=== PATIENT | male | born 2005 | race African-American/Black ===

== ENCOUNTER 2024-11-07 14:14 | Emergency (ER) | payer SELFPAY ==
[~2024-11-07] VITALS: Ht 180.3 cm; Wt 86.0 kg
[2024-11-07 14:33] VITALS: TEMP 36.9; O2SAT 100
[2024-11-07] MEDS: METHYLPREDNISOLONE SOD SUCC 125MG/2ML (ACT-O-VIAL) IM STA (16:13)
[2024-11-07] MEDS: KETOROLAC 30MG/ML VIAL IM ONE (16:13)
[2024-11-07] MEDS: HYDROCODONE/ACETAMINOPHEN 5/325MG TABLET PO STA (16:14)
[2024-11-07] MEDS: PENICILLIN G BENZATHINE 1,200,000 UNITS/2ML SYR IM ONE (16:43)
[2024-11-07] MEDS ORDERED: IBUP-2029 PO (17:09)
[2024-11-07] MEDS ORDERED: AMOX1TAB16 MT (17:09)
[2024-11-07 17:19] VITALS: BP 140/84; PULSE 77; RESP 12; O2SAT 98
== END 2024-11-07 17:44 | disposition home or self-care (01) ==
LOC: ER 14:49
DX: J36 Peritonsillar abscess (principal)
CPT/HCPCS: 99284; 96372; J0561; J1885; J2919